=== PATIENT | male | born 1980 | race Caucasian/White ===

== ENCOUNTER 2017-07-17 11:33 | Emergency (ER) | payer BC ==
[2017-07-17 11:56] VITALS: BP 109/70
--- NOTE | 2017-07-17 11:59 | UC ---
Nausea/Vomiting/Diarrhea HPI - HPI Summary HPI Summary: 37 y/o male presents to the urgent care c/o stomach ache, nausea, vomiting and diarrhea that started early this morning. Started to feel feverish and chills around 5-6 AM, but he thinks Temp is going down since he hasn't taking anything to alleviate symptoms. He has had 5 episodes of bile like vomiting and 3 episode of watery diarrhea. Last episode was at 0830AM. Pt is starting to feel a little better now. He has been drinking Gatorade. Pt denies blood in the stool or vomiting, URI, urinary symptoms, neck pain , abdominal pain, SOB, chest pain, No recent travel outside the country. He ate a left over [place], but he doen't think that is the cause. No sick contacts. - History of Current Complaint Chief Complaint: UCGeneralIllness Stated Complaint: VOMITING FEVER Time Seen by Provider: 07/17/17 11:58 Hx Obtained From: Patient Onset/Duration: Gradual Onset, Lasting Hours - 6hrs, Still Present Timing: Intermittent Episodes Lasting: Severity Initially: Mild Severity Currently: Mild Pain Intensity: 4 - cramping relief w/ diarrhea Pain Scale Used: 0-10 Numeric Location: Diffuse Character: Cramping - relief w/ diarrhea and vomiting Aggravating Factor(s): Food Alleviating Factor(s): NPO Nausea/Vomiting Presence: Nauseated, Vomiting Vomiting Frequency: Every 1-2 hours Nausea/Vomiting Duration: 0-12 hours Vomiting Characteristics: Bilious, Nonbilious Diarrhea Presence: Yes Diarrhea Frequency: Every 3-4 hours - 3 episodes Diarrhea Duration: 0-12 hours Diarrhea Characteristics: Watery - Risk Factors Influenza Risk Factors: Negative Surgical Obstruction Risk Factor(s): Negative - Allergies/Home Medications Allergies/Adverse Reactions: Allergies Allergy/AdvReac Type Severity Reaction Status Date / Time Cephalosporins Allergy Anaphylatic Verified 07/17/17 11:53 Shock PMH/Surg Hx/FS Hx/Imm Hx Previously Healthy: Yes - Pt denies PMHX - Surgical History Surgical History: Yes Surgery Procedure, Year, and Place: Bilateral Open Femur Fractures and Mandible Fractures, 2007. Right Clavicle Fracture, 2003 - Family History Known Family History: Positive: Cardiac Disease - Social History Occupation: Employed Full-time Lives: With Family Alcohol Use: Occasionally Substance Use Type: None Smoking Status (MU): Former Smoker When Did the Patient Quit Smoking/Using Tobacco: 2007 Household Exposure Type: Cigarettes Review of Systems Constitutional: Fever - low grade subjective fever at home, Chills Skin: Negative Eyes: Negative ENT: Negative Respiratory: Negative Gastrointestinal: Abdominal Pain - cramping resolved w/ diarrhea and vomiting, Vomiting, Diarrhea, Nausea Genitourinary: Negative Motor: Negative Neurovascular: Negative Musculoskeletal: Negative Neurological: Negative Psychological: Negative Is Patient Immunocompromised?: No All Other Systems Reviewed And Are Negative: Yes Physical Exam - Summary Physical Exam Summary: Vital Signs Reviewed: Yes General:Patient is a well developed and nourished male who is sitting comfortable in the examining table. Patient is not in any acute respiratory distress. Eyes: Positive: Conjunctiva Clear - PERRLA, EOMI, fundi grossly normal ENT: Positive: Normal ENT inspection, Hearing grossly normal, Pharynx normal, TMs normal Neck: Positive: Supple, Nontender, No Lymphadenopathy Respiratory: Positive: Chest non-tender, Lungs clear, Normal breath sounds, No respiratory distress Cardiovascular: Positive: RRR,S1 and S2 present, No Murmur, Pulses Normal, Brisk Capillary Refill Abdomen Description: Positive: Nontender, Other: - Abd: Flat with no distention. No surface trauma, scars, incisions. hyperactive bowel sounds present in all four quadrants. No tenderness, guarding, rigidity to palpation. No masses palpated, no pulsation in epigastric area. No organomegaly. Negative [place] signs. No periumbilical tenderness. No rebound in the lower quadrants. NT over [place] point. Left side suprapubic tenderness with no distension. Good femoral pulses bilaterally. No hernia noted. No CVAT bilaterally Musculoskeletal: Positive: Strength Intact, ROM Intact, No Edema,FROM in all major joints, no edema, no cyanosis or clubbing. Neuro: Alert and oriented x 3. No acute neurological deficits. Speech is normal. Psychological: WNL Skin: Dry and warm Triage Information Reviewed: Yes Vital Signs: Initial Vital Signs Temp 100.0 F 07/17/17 11:47 Pulse 67 07/17/17 11:47 Resp 17 07/17/17 11:47 BP 109/70 07/17/17 11:47 Pulse Ox 98 07/17/17 11:47 Naus/Vom/Diarrhea Course/Dx - Course Course Of Treatment: 37 y/o male presents to the urgent care c/o stomachache, nausea, vomiting and diarrhea that started early this morning. Started to feel feverish and chills around 5-6 AM, but he thinks Temp is going down since he hasn't taking anything to alleviate symptoms. He has had 5 episodes of bile like vomiting and 3 episode of watery diarrhea. Last episode was at 0830AM. Pt is starting to feel a little better now. He has been drinking Gatorade. Pt denies blood in the stool or vomiting, URI, urinary symptoms, neck pain , abdominal pain, SOB, chest pain, No recent travel outside the country. He ate a left over [place], but he doesn't think that is the cause. No sick contacts.Hx obtained. PE: WNL. Pt given Tylenol and Zofran at the clinic to alleviate symptoms. Pt tolerated well medications. Pt most likely with a gastroenteritis. PE: WNL. Pt Rx Zofran PO for Nausea and vomiting, and Rx Lomotil PO only if diarrhea persists. Pt advised to increase fluid intake, eat soft meals, rest. However if symptoms worsen and abdominal pain develops to go Immediately to the ER for further management. Pt explained D/C instructions. Pt understood and agreed w/ plan of care. Pt left the clinic ambulating, A&OX3 - Differential Dx/Diagnosis Differential Diagnoses - Male: Appendicitis, Peptic Ulcer Disease, Gastroenteritis (Viral), Gastroenteritis (Bacterial), Dehydration, Cholecystitis Provider Diagnoses: 1- Acute nausea and vomiting. 2- Acute Diarrhea. 3- Viral gastroenteritis Condition At Discharge: Stable Discharge - Sign-Out/Discharge Documenting (check all that apply): Discharge/Admit/Transfer - D/C home - Discharge Plan Condition: Stable Disposition: HOME Prescriptions: Diphenoxylat/Atrop 2.5-0.025M* [Lomotil TAB*] 2 tab PO QID #12 tab MDD 8tabs/day Ondansetron ODT TAB* [Zofran 4 MG Odt TAB*] 4 mg PO Q6H PRN #12 tab.odt PRN Reason: Vomiting Patient Education Materials: Gastroenteritis (ED) Forms: *Work Release Referrals: José Luis Cote MD [Primary Care Provider] - 2 Days Additional Instructions: 1- Please increase fluid intake by drinking Pedialyte OTC or Gatorade. Eat soft meals and small portions 2- Take Zofran PO as directed to alleviate vomiting. Only take the Lomotil is diarrhea becomes severe. 3- If he develops severe fever or abdominal pain w/ recurrent episodes of diarrhea please go the ER, otherwise f/u with your PCP if diarrhea not resolving in 2-3 days - Billing Disposition and Condition Condition: STABLE Disposition: HOME
[2017-07-17] MEDS ORDERED: Ondansetron ODT TAB* 4 MG PO ONE (12:08)
[2017-07-17] MEDS ORDERED: Acetaminophen TAB* 325 MG PO ONE (12:08)
== END 2017-07-17 12:57 | disposition home or self-care (01) ==
LOC: UCCORT 11:33
DX: R11.2 Nausea with vomiting, unspecified (principal); R19.7 Diarrhea, unspecified; A08.4 Viral intestinal infection, unspecified; Z87.891 Personal history of nicotine dependence
CPT/HCPCS: 99202; A9270-GY; G0463

== ENCOUNTER 2018-10-18 18:57 | Emergency (ER) | payer BC ==
--- NOTE | 2018-10-18 19:45 | UC ---
Complaint Male HPI - HPI Summary HPI Summary: 38 yo male presents with rectal pain. He tells me that he has a history of hemorrhoids and has had to have surgery for these in the past x2. On 10/16 he began to have some mild anal discomfort that was worse with having a BM. He has a BM once or twice a day and since that time has had increased pain and feels a bulge in that area. He thinks he has a hemorrhoid again. He has been using an OTC topical analgesic with slight relief. Denies blood in stool, fever, abdominal pain, n/v. - History of Current Complaint Stated Complaint: PERSONAL Time Seen by Provider: 10/18/18 19:44 Hx Obtained From: Patient Onset/Duration: Gradual Onset Timing: Constant Severity Initially: Moderate Severity Currently: Severe Pain Intensity: 10 Pain Scale Used: 0-10 Numeric - Allergies/Home Medications Allergies/Adverse Reactions: Allergies Allergy/AdvReac Type Severity Reaction Status Date / Time Cephalosporins Allergy Anaphylatic Verified 10/18/18 19:49 Shock PMH/Surg Hx/FS Hx/Imm Hx - Additional Past Medical History Additional PMH: None - Surgical History Surgical History: Yes Surgery Procedure, Year, and Place: Bilateral Open Femur Fractures and Mandible Fractures, 2007. Right Clavicle Fracture, 2003 - Family History Known Family History: Positive: Cardiac Disease - Social History Occupation: Employed Full-time Lives: With Family Alcohol Use: Occasionally Substance Use Type: None Smoking Status (MU): Former Smoker When Did the Patient Quit Smoking/Using Tobacco: 2007 Household Exposure Type: Cigarettes Review of Systems All Other Systems Reviewed And Are Negative: Yes Constitutional: Positive: Negative Skin: Positive: Negative Respiratory: Positive: Negative Cardiovascular: Positive: Negative Gastrointestinal: Positive: Negative Genitourinary: Positive: Other - Anal pain Physical Exam - Summary Physical Exam Summary: GENERAL: NAD. WDWN. No pain distress. SKIN: No rashes, sores, lesions, or open wounds. NECK: Supple. Nontender. No lymphadenopathy. CHEST: CTAB. No r/r/w. No accessory muscle use. Breathing comfortably and in no distress. CV: RRR. Without m/r/g. Pulses intact. Cap refill <2seconds ABDOMEN: Soft. NTTP. No distention or guarding. Bowel sounds present RECTAL: Large external thrombosed hemorrhoid at 10 o'clock position. TTP. No bleeding. NEURO: Alert. PSYCH: Age appropriate behavior. Triage Information Reviewed: Yes Vital Signs: Vital Signs: Temp Pulse Resp BP Pulse Ox 98.8 F 65 16 128/79 99 10/18/18 19:46 10/18/18 19:46 10/18/18 19:46 10/18/18 19:46 10/18/18 19:46 Vital Signs Reviewed: Yes Complaint Male Course/Dx - Course Course Of Treatment: Large hemorrhoid. Will rx for norco for pain and steroid cream to try to shrink the hemorrhoid. Strongly encouraged that he call his surgeon to schedule an appointment as I suspect this will need surgical intervention. - Differential Dx/Diagnosis Provider Diagnosis: External hemorrhoid Discharge - Sign-Out/Discharge Documenting (check all that apply): Patient Departure All imaging exams completed and their final reports reviewed: No Studies - Discharge Plan Condition: Stable Disposition: HOME Prescriptions: Betamethasone Dipropionate 15 gm TOPICAL BID #1 tube HYDROcodone/ACETAMIN 5-325 MG* [[place] 5-325 TAB*] 1 tab PO Q8H PRN #9 tab MDD 3 PRN Reason: Pain - Moderate Patient Education Materials: Hemorrhoids (ED) Referrals: José Luis Cote MD [Primary Care Provider] - Jag Ellington MD [Medical Doctor] - As Soon As Possible Additional Instructions: If you develop a fever, shortness of breath, chest pain, new or worsening symptoms - please call your PCP or go to the ED immediately. Please call the General Surgeon to schedule an appointment for further evaluation within 1-2 weeks - Billing Disposition and Condition Condition: STABLE Disposition: Home
[2018-10-18 19:49] VITALS: BP 128/79
[2018-10-18] MEDS ORDERED: HYDROcodone/ACETAMIN 5-325 MG* 1 TAB PO ONE (20:13)
[2018-10-18] MEDS ORDERED: Hydrocortisone 1% CREAM* 30 GM TUBE TOPICAL ONE (20:13)
== END 2018-10-18 20:32 | disposition home or self-care (01) ==
LOC: UCCORT 18:57
DX: K64.4 Residual hemorrhoidal skin tags (principal); Z87.891 Personal history of nicotine dependence
CPT/HCPCS: 99213; A9270-GY; G0463